=== PATIENT | female | born 1965 ===

== ENCOUNTER 2018-08-27 19:12 | Emergency (ER) | payer OTHER ==
--- NOTE | 2018-08-27 19:30 | UC ---
Skin Complaint HPI - HPI Summary HPI Summary: 53 yo female presents with puncture wound to right foot. She tells me that they are doing work on her house and she was walking outside with crocs on and stepped on a nail. Nail punctured her shoe and punctured the bottom of her right foot. She cleansed the area and came to . She has the nail with her and it is intact. She is unsure the date of her last tetanus shot. - History of Current Complaint Time Seen by Provider: 08/27/18 19:30 Stated Complaint: PUNCTURE WOUND Hx Obtained From: Patient Onset/Duration: Sudden Onset Onset Severity: Moderate Current Severity: Moderate Pain Intensity: 5 Pain Scale Used: 0-10 Numeric - Allergy/Home Medications Allergies/Adverse Reactions: Allergies Allergy/AdvReac Type Severity Reaction Status Date / Time Penicillins Allergy Swelling Verified 08/27/18 19:38 PMH/Surg Hx/FS Hx/Imm Hx - Additional Past Medical History Additional PMH: None - Surgical History Surgical History: None - Family History Known Family History: Positive: None - Social History Occupation: Employed Full-time Lives: With Family Alcohol Use: Occasionally Substance Use Type: None Smoking Status (MU): Never Smoked Tobacco Review of Systems All Other Systems Reviewed And Are Negative: Yes Constitutional: Positive: Negative Skin: Positive: Other - Right foot puncture wound Respiratory: Positive: Negative Cardiovascular: Positive: Negative Neurovascular: Positive: Negative Musculoskeletal: Positive: Negative Neurological: Positive: Negative Psychological: Positive: Negative Physical Exam - Summary Physical Exam Summary: GENERAL: NAD. WDWN. No pain distress. SKIN: RIGHT FOOT: Plantar aspect near base of 1st MTP with 2mm puncture wound. TTP. No retained FB appreciated. No active drainage or bleeding. CHEST: No accessory muscle use. Breathing comfortably and in no distress. CV: Pulses intact. Cap refill <2seconds MSK: FROM all toes NEURO: Alert. PSYCH: Age appropriate behavior. Triage Information Reviewed: Yes Vital Signs: Vital Signs: Temp Pulse Resp BP Pulse Ox 98.3 F 68 18 109/68 99 08/27/18 19:34 08/27/18 19:34 08/27/18 19:34 08/27/18 19:34 08/27/18 19:34 Vital Signs Reviewed: Yes Course/Dx - Course Course Of Treatment: tdap updated today. Area was cleansed with NS Will place her on clindamycin for prophylactic infection given dirty puncture wound to foot. - Diagnoses Provider Diagnosis: Puncture wound of skin from metal nail Discharge - Sign-Out/Discharge Documenting (check all that apply): Patient Departure All imaging exams completed and their final reports reviewed: No Studies - Discharge Plan Condition: Stable Disposition: HOME Prescriptions: Clindamycin HCl 300 mg PO TID #21 capsule Patient Education Materials: Puncture Wound (ED) Referrals: No Primary Care Phys,NOPCP [Primary Care Provider] - Additional Instructions: If you develop a fever, shortness of breath, chest pain, new or worsening symptoms - please call your PCP or go to the ED immediately. Your tetanus shot was updated today. Please keep the area covered with a band-aid until well healed. Take your antibiotic as prescribed. If you noticed redness, swelling, streaking, or drainage --- or if you develops a fever, please be rechecked immediately - Billing Disposition and Condition Condition: STABLE Disposition: Home
[2018-08-27] MEDS ORDERED: Tetan/Diph/Pertus SYR(Tdap)* 0.5 ML SYR(BOOSTRIX) use SYR IM ONE (19:40)
== END 2018-08-27 20:10 | disposition home or self-care (01) ==
LOC: UCEAST 19:12
DX: S91.331A Puncture wound without foreign body, right foot, initial encounter (principal); W22.8XXA Striking against or struck by other objects, initial encounter; Y92.017 Garden or yard in single-family (private) house as the place of occurrence of the external cause; Z88.0 Allergy status to penicillin
CPT/HCPCS: 90471; 90715; 99201; G0463